=== PATIENT | male | born 1960 | race Caucasian/White ===

== ENCOUNTER 2017-08-31 13:27 | Emergency (ER) | payer MEDICAID, SELFPAY ==
[~2017-08-31] VITALS: Ht 182.9 cm; Wt 94.3 kg
[2017-08-31 13:36] VITALS: BP 115/72
[2017-08-31] MEDS ORDERED: KETOROLAC 30 MG/1 ML IM ONE (14:00)
[2017-08-31] MEDS ORDERED: KETOROLAC 30 MG/1 ML ONE (14:11)
== END 2017-08-31 15:01 | disposition home or self-care (01) ==
LOC: ED 14:50
DX: M79.672 Pain in left foot (principal); M79.671 Pain in right foot
CPT/HCPCS: 73630; 96372; 99284; J1885

== ENCOUNTER 2021-03-01 15:10 | Emergency (ER) | payer SELFPAY ==
[~2021-03-01] VITALS: Ht 182.9 cm; Wt 101.3 kg
[2021-03-01 15:46] VITALS: BP 133/82
[2021-03-01 16:37] LABS: BASOPHILS % (AUTO) 1 % (0-1); EOSINOPHILS % (AUTO) 5 % (1-7); LYMPHOCYTES % (AUTO) 27 % (22-44); MEAN CORPUSCULAR HEMOGLOBIN 36.2 pg (27.5-34.5); MEAN CORPUSCULAR HGB CONC 34.5 g/dL (33.2-36.2); MEAN PLATELET VOLUME 7.9 fL (7.4-10.4); MONOCYTES % (AUTO) 13 % (2-9); NEUTROPHILS % (AUTO) 54 % (42-75); PLATELET COUNT 155 x10^3/uL (130-400); RED BLOOD COUNT 4.55 x10^6/uL (4.38-5.82); RED CELL DISTRIBUTION WIDTH 13.8 % (9.4-14.8)
[2021-03-01 16:49] LABS: ALANINE AMINOTRANSFERASE 89 U/L (12-78); ALBUMIN 3.5 g/dL (3.4-5.0); ANION GAP 5 mmol/L (5-15); CALCIUM 8.6 mg/dL (8.5-10.1); CHLORIDE 106 mmol/L (98-107); CREATININE 0.75 mg/dL (0.7-1.3)
[2021-03-01 16:51] LABS: ALKALINE PHOSPHATASE 124 U/L (45-117); BILIRUBIN,TOTAL 2.1 mg/dL (0.2-1.0); TOTAL PROTEIN 8.2 g/dL (6.4-8.2)
--- NOTE | 2021-03-01 19:15 | NUR ---
nil for room assignment x1 Addendum: 03/01/21 at 1915 by MUSTAPHA ENTIRE LOBBY INCLUDING RESTROOM CALLED
--- NOTE | 2021-03-01 19:43 | NUR ---
interior paneler: attempted to call patient from lobby to room, no answer in lobby
--- NOTE | 2021-03-01 20:35 | NUR ---
special inspector: attempted to call pateint from the lobby to room, no answer in lobby
== END 2021-03-01 20:37 | disposition left against medical advice (07) ==
LOC: ED 17:21
DX: R10.84 Generalized abdominal pain (principal)
CPT/HCPCS: 36415; 74022; 80053; 85025; 99284